=== PATIENT | male | born 1935 | race Caucasian/White ===

== ENCOUNTER 2021-04-23 09:18 | Inpatient (IN) ==
[2021-04-23] MEDS ORDERED: *HR* FentaNYL (PF) 100 MCG/2 ML VIAL IVP ONE (10:44)
[2021-04-23 11:07] LABS: Basophils % 0.1 %; Eosinophils # 0.1 K/mcL (0.0-0.6); Eosinophils % 0.4 %; Hematocrit 31.3 % (37.5-50.1); Hemoglobin 10.9 g/dL (12.9-16.9); Immature Granulocytes % 1.3 % (0-4); Lymphocytes # 1.5 K/mcL (0.6-4.6); Lymphocytes % 7.4 %; Mean Corpuscular HGB Conc 34.8 g/dL (31.6-35.5); Mean Corpuscular Hemoglobin 30.4 pg (28.0-33.3); Mean Corpuscular Volume 87.4 fL (83.0-100.0); Mean Platelet Volume 8.5 fL (9.4-12.4); Monocytes # 1.3 K/mcL (0.0-1.3); Monocytes % 6.6 %; Neutrophils # 17.2 K/mcL (1.6-8.9); Platelet Count 407 K/mcL (140-400); Red Blood Count 3.58 M/mcL (4.19-5.50); Red Cell Distribution Width 12.6 % (11.5-14.5); Segmented Neutrophils % 84.2 %; White Blood Count 20.4 K/mcL (4.3-11.1)
[2021-04-23 11:41] LABS: Calcium 9.6 mg/dL (8.6-10.3); Potassium 4.9 mEq/L (3.5-5.1)
[2021-04-23] MEDS ORDERED: cefTRIAXone 1,000 MG in 0.9 % Sodium Chloride Mini Bag 100 ML IVPB ONE (12:39)
[2021-04-23] MEDS ORDERED: 0.9 % Sodium Chloride 1,000 ML IVC SCH (13:15)
[2021-04-23 13:33] LABS: Bacteria,Urine Few per hpf (None-Few); Bilirubin,Urine Negative (Negative); Blood,Urine Large (Negative); Clarity,Urine Turbid (Clear); Color,Urine Colorless (Yellow); Glucose,Urine (UA) Normal (Normal); Ketones,Urine Negative (Negative); Leukocyte Esterase,Urine Large (Negative); Nitrite,Urine Negative (Negative); PH,Urine 6.5 pH Units (5.0-8.0); Protein,Urine 30 mg/dL (Neg-Trace); RBC,Urine 50-100 per hpf (0-3); Specific Gravity,Urine 1.008 (1.010-1.025); Urobilinogen,Urine Normal (Normal); WBC,Urine TNTC per hpf (0-3)
[2021-04-23] MEDS ORDERED: Naloxone 0.4 MG/ML INJ IVP PRN (14:32)
[2021-04-23] MEDS ORDERED: Ondansetron 4 MG/2 ML VIAL IVP PRN (14:32)
[2021-04-23] MEDS ORDERED: MOM Conc 10 ML UD.LIQ PO PRN (15:28)
[2021-04-23] MEDS: cefTRIAXone 1,000 MG in Water for inj. (sterile) 10 ML IVP SCH (18:54)
[2021-04-23] MEDS: carvediloL 6.25 MG TABLET PO SCH (18:54)
[2021-04-23 18:58] LABS: Sodium, Urine 18.7 mEq/L
[2021-04-23 19:40] LABS: Calcium 9.3 mg/dL (8.6-10.3); Potassium 4.9 mEq/L (3.5-5.1)
[2021-04-23] MEDS: NIMODIPINE 30 MG PO SCH (21:39)
[2021-04-23 23:04] LABS: Calcium 9.2 mg/dL (8.6-10.3); Potassium 4.8 mEq/L (3.5-5.1)
[2021-04-24 02:11] LABS: Calcium 9.2 mg/dL (8.6-10.3); Potassium 4.6 mEq/L (3.5-5.1)
[2021-04-24] MEDS: Acetaminophen 325 MG TABLET PO PRN (05:34)
[2021-04-24 07:18] LABS: Basophils # 0.1 K/mcL (0.0-0.2); Basophils % 0.3 %; Eosinophils # 0.1 K/mcL (0.0-0.6); Eosinophils % 0.6 %; Hematocrit 28.9 % (37.5-50.1); Hemoglobin 9.7 g/dL (12.9-16.9); Immature Granulocytes % 1.1 % (0-4); Lymphocytes # 2.4 K/mcL (0.6-4.6); Lymphocytes % 10.7 %; Mean Corpuscular HGB Conc 33.6 g/dL (31.6-35.5); Mean Corpuscular Hemoglobin 29.5 pg (28.0-33.3); Mean Corpuscular Volume 87.8 fL (83.0-100.0); Monocytes # 1.9 K/mcL (0.0-1.3); Monocytes % 8.6 %; Neutrophils # 17.3 K/mcL (1.6-8.9); Platelet Count 410 K/mcL (140-400); Red Blood Count 3.29 M/mcL (4.19-5.50); Red Cell Distribution Width 13.2 % (11.5-14.5); Segmented Neutrophils % 78.7 %
[2021-04-24 07:39] LABS: Calcium 9.4 mg/dL (8.6-10.3); Potassium 4.5 mEq/L (3.5-5.1)
[2021-04-24 07:43] LABS: Uric Acid 5.8 mg/dL (2.3-7.6)
[2021-04-24 07:47] LABS: Thyroid Stimulating Hormone 1.865 mcIU/mL (0.340-5.600)
[2021-04-24] MEDS: carvediloL 6.25 MG TABLET PO SCH ×2 (08:00→16:40)
[2021-04-24] MEDS: NIMODIPINE 30 MG PO SCH ×2 (08:00→14:27)
[2021-04-24] MEDS: Lactobacillus 1 EACH CAP.SPRINK PO SCH (08:03)
[2021-04-24] MEDS: Aspirin Enteric Coated 81 MG Tablet PO SCH (08:03)
[2021-04-24 08:30] LABS: Calcium 9.3 mg/dL (8.6-10.3); Potassium 4.7 mEq/L (3.5-5.1)
[2021-04-24 10:55] LABS: Calcium 9.4 mg/dL (8.6-10.3); Potassium 4.7 mEq/L (3.5-5.1)
[2021-04-24] MEDS ORDERED: 0.9 % Sodium Chloride 1,000 ML IVC SCH (12:45)
[2021-04-24 14:25] LABS: Calcium 9.5 mg/dL (8.6-10.3); Potassium 4.9 mEq/L (3.5-5.1)
[2021-04-24] MEDS: Megestrol Acetate 400 MG/10 ML UDC PO SCH (14:26)
[2021-04-24] MEDS ORDERED: Zonisamide 100 MG CAPSULE PO SCH (15:30)
[2021-04-24] MEDS: *HR* Heparin 5,000 UNIT/ML VIAL SQ SCH (16:41)
[2021-04-24] MEDS: cefTRIAXone 1,000 MG in Water for inj. (sterile) 10 ML IVP SCH (17:36)
[2021-04-24 18:32] LABS: Calcium 9.1 mg/dL (8.6-10.3); Potassium 5.2 mEq/L (3.5-5.1)
[2021-04-25 03:41] LABS: Basophils % 0.2 %; Eosinophils # 0.1 K/mcL (0.0-0.6); Eosinophils % 0.8 %; Hematocrit 26.8 % (37.5-50.1); Hemoglobin 9.1 g/dL (12.9-16.9); Immature Granulocytes % 0.9 % (0-4); Lymphocytes # 2.4 K/mcL (0.6-4.6); Lymphocytes % 13.5 %; Mean Corpuscular Hemoglobin 30.1 pg (28.0-33.3); Mean Corpuscular Volume 88.7 fL (83.0-100.0); Mean Platelet Volume 9.1 fL (9.4-12.4); Monocytes # 1.6 K/mcL (0.0-1.3); Monocytes % 8.7 %; Neutrophils # 13.5 K/mcL (1.6-8.9); Platelet Count 397 K/mcL (140-400); Red Blood Count 3.02 M/mcL (4.19-5.50); Red Cell Distribution Width 13.3 % (11.5-14.5); Segmented Neutrophils % 75.9 %; White Blood Count 17.8 K/mcL (4.3-11.1)
[2021-04-25 03:57] LABS: Calcium 8.7 mg/dL (8.6-10.3); Magnesium 2.2 mg/dL (1.6-2.6); Phosphorous 3.1 mg/dL (2.7-4.5); Potassium 4.5 mEq/L (3.5-5.1)
[2021-04-25] MEDS: Acetaminophen 325 MG TABLET PO PRN ×2 (05:18→14:59)
[2021-04-25] MEDS: *HR* Heparin 5,000 UNIT/ML VIAL SQ SCH (05:19)
[2021-04-25] MEDS: Megestrol Acetate 400 MG/10 ML UDC PO SCH (07:30)
[2021-04-25] MEDS: carvediloL 6.25 MG TABLET PO SCH (07:30)
[2021-04-25] MEDS: Aspirin Enteric Coated 81 MG Tablet PO SCH (07:30)
[2021-04-25] MEDS: Lactobacillus 1 EACH CAP.SPRINK PO SCH (07:30)
[2021-04-25 11:04] VITALS: BP 107/90
[2021-04-25] MEDS ORDERED: Cefdinir 300 MG CAPSULE PO SCH (12:00)
== END 2021-04-25 16:10 | disposition home or self-care (01) | DRG 726 ==
LOC: EMEROOARM 09:18 → 2NENU 09:18 → SUATTDRO 13:55 → 2NENU 16:00
PROVIDERS: ADMIT Internal Medicine; ATTEND Internal Medicine